=== PATIENT | male | born 1995 | race Caucasian/White ===

== ENCOUNTER → 2021-09-16 | Outpatient (REF) ==
--- NOTE | 2021-09-16 16:04 | Diagnostic Imaging Report ---
INDICATION: Right wrist pain. FINDINGS: Three views of the right wrist show no fracture, dislocation, or other acute abnormalities. IMPRESSION: Negative right wrist. Dictated by: Dictated on workstation # [id number]
== END ==
LOC: OCC 15:50
PROVIDERS: ATTEND Nurse Practitioner Family
DX: M25.531 Pain in right wrist (principal)
CPT/HCPCS: 73110

== ENCOUNTER 2023-06-16 07:53 | Emergency (ER) | payer OTHER ==
[~2023-06-16] VITALS: Ht 188 cm; Wt 203.0 kg
--- NOTE | 2023-06-16 08:28 | ED Fall/Injury ---
General Chief Complaint: Lower Extremity Stated Complaint: RT HIP AND LOWER BACK PAIN | WORK COMP Nursing Triage Note: PT STATES HE TRIPPED THIS MORNING AT WORK, [facility], FALLING HURTING LT ANKLE AND RT HIP, DENIES LOC NO HEAD OR NECK PAIN Source: patient Exam Limitations: no limitations History of Present Illness Date Seen by Provider: Jun 16, 2023 Time Seen by Provider: 08:05 Initial Comments This 27-year-old young man presents to the emergency room after experiencing a fall at work. 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 He tripped on a Oleg lift. His left foot was twisted under his right thigh as he fell. He landed on his right side striking the base of the Oleg lift on the way down. He struck his right hip and lower back on the Oleg as he landed. He complains of minor pain in the left ankle. This pain has actually improved significantly since the initial injury. He is able to bear weight and walk on it. He does not believe the left ankle injury is significant. He is having more pain in the right lateral hip region, wrapping up around to the right lower back. The actual lumbar spine does not appear to be involved. He does not appear to have tenderness over the lower ribs. There is no pain with deep inspiration. He is able to walk but with difficulty secondary to pain. He has not taken any medications or used any other treatment modalities for the pain. He denies any other injuries. Specifically, he denies head or neck injury. Allergies and Home Medications Allergies Coded Allergies: No Known Drug Allergies (Unverified , 06/16/23) Patient Home Medication List Home Medication List Reviewed: Yes Review of Systems Review of Systems Constitutional: no symptoms reported Eyes: No Symptoms Reported Ears, Nose, Mouth, Throat: no symptoms reported Respiratory: no symptoms reported Cardiovascular: no symptoms reported Gastrointestinal: no symptoms reported Genitourinary: no symptoms reported Musculoskeletal: see HPI Skin: no symptoms reported Psychiatric/Neurological: No Symptoms Reported Past Ufumany-Ppxouh-Gurarh Hx Patient Social History Tobacco Use?: No Substance use?: No Alcohol Use?: No Immunizations Up To Date Third COVID19 Vaccination Date: YES Past Medical History Surgery/Hospitalization HX: HTN Surgeries: No Cardiac: Yes High Cholesterol, Hypertension Neurological: No Genitourinary: No Gastrointestinal: No Musculoskeletal: No Endocrine: Yes (Morbid obesity) HEENT: No Cancer: No Psychosocial: No Physical Exam Vital Signs Vital Signs - First Documented 06/16/23 08:01 Temp 37.0 Pulse 95 Resp 20 B/P (MAP) 163/104 (123) Pulse Ox 97 O2 Delivery Room Air Capillary Refill : Less Than 3 Seconds Height, Weight, BMI Height: '" Weight: lbs. oz. kg; 57.00 BMI Method: General Appearance: WD/WN, no apparent distress, obese HEENT: normal ENT inspection Neck: normal inspection Cardiovascular: regular rate, rhythm, no edema, no murmur Respiratory: lungs clear, normal breath sounds, no respiratory distress Gastrointestinal: non tender, soft Back: normal inspection, no vertebral tenderness, other (Tenderness in the right lower back lateral to the lumbar spine with no visible injury. No tenderness over the ribs or spine.) Extremities: normal inspection, other (Left ankle slightly tender anteriorly an d minor pain present in the same area with dorsiflexion and axial loading. No instability or laxity. No tenderness over the malleoli. No tenderness in the foot. No significant pain with axial pressure. No pain with rotation of either hip. Straight leg raise is normal but does induce some increased pain.) Neurologic/Psychiatric: pick up II-XII nml as tested, no motor/sensory deficits, alert, normal mood/affect, oriented x 3 Skin: normal color, warm/dry, ecchymosis (Small contusion approximately 1 cm in size on the right lateral hip near the iliac crest) Exam is significantly limited by body habitus. [place] Coma Score Best Eye Response: (4) Open Spontaneously Best Verbal Response: (5) Oriented Best Motor Response: (6) Obeys Commands Alison Total: 15 Progress/Results/Core Measures Results/Orders My Orders Orders - BREANNA BURGER MD Ibuprofen Tablet (Motrin Tablet) (06/16/23 08:30) Medications Given in ED Current Medications Medications Dose Ordered Sig/Meli Route Start Time Stop Time Status Last Admin Dose Admin Ibuprofen 600 mg ONCE ONCE PO 06/16/23 08:30 06/16/23 08:31 06/16/23 08:24 600 MG Vital Signs/I&O 06/16/23 06/16/23 08:01 08:24 Temp 37.0 37.0 Pulse 95 Resp 20 B/P (MAP) 163/104 (123) Pulse Ox 97 O2 Delivery Room Air Blood Pressure Mean: 123 Progress Progress Note : Time: 08:36 Progress Note Of theBased on clinical history and exam findings, imaging studies were not deemed necessary. Injuries seem to be limited to soft tissues, particularly contusion over the right hip and probable lower back strain. Ibuprofen was administered in the ER. Patient will likely be able to perform light duties today with Tylenol and ibuprofen. See discharge instructions for further discussion. Patient was able to ambulate freely emergency room on his own power. Work comp paperwork was completed. Departure Impression Primary Impression: Fall on same level as cause of accidental injury Additional Impressions: Contusion of right hip Qualified Codes: S70.01XA - Contusion of right hip, initial encounter Low back pain Qualified Codes: M54.50 - Low back pain, unspecified Left ankle injury Qualified Codes: S99.912A - Unspecified injury of left ankle, initial encounter Disposition: 01 HOME, SELF-CARE Condition: Stable Departure-Patient Inst. Decision time for Depature: 08:24 Referrals: YOHAN GREEN DO (PCP/Family) Primary Care Physician Patient Instructions: Low Back Pain ED, Minor Contusion ED Add. Discharge Instructions: You may take ibuprofen up to 600 mg every 6 hours and/or Tylenol (acetaminophen) up to 1000 mg every 6 hours as needed for pain control. Icing affected areas in 20-minute intervals may also be helpful in reducing pain and swelling. You may elevate your left foot as well. Perform light duty at work today with no pushing, pulling, or lifting over 5 pounds. If light duty is not possible, do not work today. Resume work duties tomorrow, gradually advancing level of activity as pain allows. Return to care if you have worsening or unrelenting symptoms despite following these instructions. Avoid being sedentary for prolonged periods of time as this may cause worsening muscle tightness and soreness. Return to the emergency room immediately if you develop any of the following symptoms: Escalating lower back pain, inability to walk, difficulty controlling bowel or bladder functions, numbness in your groin, true weakness in your legs, or loss of sensation in your legs. These symptoms could indicate a serious injury to your lower back, spine, or other serious musculoskeletal injury. All discharge instructions reviewed with patient and/or family. Voiced understanding. Copy Copies To 1: YOHAN GREEN JOSHUA T MD Jun 16, 2023 08:28
[2023-06-16] MEDS ORDERED: IBUPROFEN 200 MG TABLET PO ONE (08:30)
[2023-06-16 08:38] VITALS: BP 163/104
== END 2023-06-16 08:38 | disposition home or self-care (01) ==
LOC: EDUNIT# 07:53 → ER 07:57
DX: S70.01XA Contusion of right hip, initial encounter (principal); S99.912A Unspecified injury of left ankle, initial encounter; M54.50 Low back pain, unspecified; E66.01 Morbid (severe) obesity due to excess calories; Z68.43 Body mass index [BMI] 50.0-59.9, adult; W01.198A Fall on same level from slipping, tripping and stumbling with subsequent striking against other object, initial encounter; X50.1XXA Overexertion from prolonged static or awkward postures, initial encounter; Y99.0 Civilian activity done for income or pay
CPT/HCPCS: 99283